=== PATIENT | female | born 1985 ===

== ENCOUNTER 2016-09-09 13:30 | Emergency (ER) | payer OTHER ==
[2016-09-09 13:30] VITALS: BMI 32.8
[2016-09-09 13:37] VITALS: BP 164/54; PULSE 74; RESP 20; TEMP 99.1; O2SAT 99
--- NOTE | 2016-09-09 14:07 | ED PDOC ---
HPI: Female Pain Time Seen by Provider: 09/09/16 14:02 Chief Complaint (Nursing): Female Genitourinary Chief Complaint (Provider): with vaginal bleeding History Per: Patient Additional Complaint(s): Patient is (1 ectopic and 5 spontaneous abortions) and she presents with abdominal pain and bleeding that started 1 hour ago. Patient states she is currently 11 weeks . Upon arrival she states the pain and bleeding have subsided. No fever or chills, no dysuria. Past Medical History Reviewed: Historical Data, Nursing Documentation, Vital Signs Vital Signs: Last Vital Signs Temp 99.1 F 09/09/16 13:34 Pulse 74 09/09/16 13:34 Resp 20 09/09/16 13:34 BP 164/54 H 09/09/16 13:34 Pulse Ox 99 09/09/16 13:34 - Medical History PMH: Asthma - Surgical History Other surgeries: right breast cyst removal, surgery for ectopic , cerclage insertion - Family History Family History: States: No Known Family Hx - Living Arrangements Living Arrangements: With Family - Social History Current smoker - smoking cessation education provided: No Alcohol: None Drugs: Denies - Home Medications Home Medications: Ambulatory Orders Medication Instructions Recorded Albuterol Sulfate [Proair 90 mcg IH PRN 05/23/16 Respiclick] Montelukast [Singulair] 10 mg PO DAILY 05/23/16 - Allergies Allergies/Adverse Reactions: Allergies Allergy/AdvReac Type Severity Reaction Status Date / Time shrimp Allergy RASH Verified 05/23/16 11:10 seafood Allergy RASH Uncoded 09/09/16 13:34 Review of Systems ROS Statement: Except As Marked, All Systems Reviewed And Found Negative Constitutional: Negative for: Fever Cardiovascular: Negative for: Chest Pain Respiratory: Negative for: Cough Gastrointestinal: Negative for: Nausea, Vomiting Genitourinary Female: Positive for: Vaginal Bleeding, Pelvic Pain. Negative for : Dysuria, Frequency, Incontinence, Hematuria, Vaginal Discharge Physical Exam - Reviewed Nursing Documentation Reviewed: Yes Vital Signs Reviewed: Yes - Physical Exam Appears: Positive for: Well, Non-toxic, No Acute Distress Skin: Negative for: Rash Eye Exam: Positive for: Normal appearance, EOMI, PERRL Cardiovascular/Chest: Positive for: Regular Rate, Rhythm Respiratory: Positive for: Normal Breath Sounds Gastrointestinal/Abdominal: Positive for: Normal Exam, Soft. Negative for: Tenderness Back: Negative for: L CVA Tenderness, R CVA Tenderness Neurologic/Psych: Positive for: Alert, Oriented - Laboratory Results Result Diagrams: 09/09/16 15:00 09/09/16 15:00 Urine dip results: Positive for: Blood (moderate). Negative for: Leukocyte Esterase, Nitrate, Ketones, Glucose, Bilirubin, Protein - ECG O2 Sat by Pulse Oximetry: 99 Pulse Ox Interpretation: Normal - Other Rad OB US X-Ray: Read By Radiologist X-Ray Interpretation: see below Medical Decision Making Medical Decision Makin-year-old with bleeding and pain Plan: US Labs US: Findings: The uterus is anteverted and measures 13.5 x 10.2 x 5.7 centimeter. Anechoic structure seen within the uterus measuring approximately 3.5 centimeters. This could represent a gestational sac versus a fluid-filled endometrium. This structure extends into the lower uterine segment. No yolk sac or pole identified. The cervix measures approximately 4 centimeters. The cervix appears closed. No definite cervical abnormality identified. The right ovary measures 7.7 x 2.4 x 2.3 centimeters. The left ovary measures approximately 4.1 x 2.4 x 3.8 centimeter. Normal flow seen within both ovaries. No significant free fluid in the cul-de-sac. Impression: No definite gestational sac, yolk sac or pole identified. Apparent fluid in the endometrial canal. Given patient's positive status, this could represent early , ectopic versus . Close interval repeat ultrasonography evaluation recommended. Follow-up with beta HCG levels recommended. Discussed with LEONIDAS Pang at approximately 4:45 p.m. on 09/09/2016. Beta is 662.55. Blood type O negative, rhogam ordered. Patient has had rhogam in the past and has had no previous adverse reaction. Patient is aware of above findings, all questions answered. She was instructed to have beta repeated in 2 days either by returning to ED or follow up with OB. Disposition - Clinical Impression Clinical Impression: Missed , Need for rhogam due to Rh negative mother - Patient ED Disposition Is Patient to be Admitted: No Counseled Patient/Family Regarding: Studies Performed, Diagnosis, Need For Followup - Disposition [facility] Disposition: Routine/Home Disposition Time: 17:35 Condition: STABLE Additional Instructions: Return to ED in 2 days for repeat beta quant or follow up with your OB in 2 days. Instructions: Spontaneous Miscarriage (ED) Results - Lab Results Lab Results: 09/09/16 15:00 WBC 13.2 H D RBC 4.78 Hgb 13.6 Hct 40.7 MCV 85.2 MCH 28.5 MCHC 33.4 RDW 14.2 Plt Count 307 MPV 7.6 Neut % (Auto) 69.0 Lymph % (Auto) 18.6 L Parmer % (Auto) 5.8 Eos % (Auto) 5.9 H Baso % (Auto) 0.7 Neut # 9.1 H Lymph # 2.5 Parmer # 0.8 Eos # 0.8 H Baso # 0.1 Sodium 141 Potassium 3.9 Chloride 102 Carbon Dioxide 25 Anion Gap 18 BUN 8 Creatinine 0.7 Est GFR ( Amer) > 60 Est GFR (Non-Af Amer) > 60 Random Glucose 89 Calcium 9.4 Total Bilirubin 0.5 AST 23 ALT 22 Alkaline Phosphatase 61 Total Protein 7.7 Albumin 4.2 Globulin 3.6 Albumin/Globulin Ratio 1.2 Beta HCG, Quant 662.55 Blood Type O NEGATIVE Antibody Screen Negative BBK History Checked Patient has bt
[2016-09-09 15:26] LABS: BASO # 0.1 K/uL (0.0-0.2); BASO % 0.7 % (0.0-2.0); EOS # 0.8 K/uL (0.0-0.7); EOS % 5.9 % (0.0-4.0); HEMATOCRIT 40.7 % (34.0-47.0); LYMPH # 2.5 K/uL (1.0-4.3); LYMPH % 18.6 % (20.0-40.0); MEAN CELL VOLUME 85.2 fl (81.0-99.0); MEAN CORPUSCULAR HEMOGLOBIN 28.5 pg (27.0-31.0); MEAN CORPUSCULAR HGB CONC 33.4 g/dL (33.0-37.0); MEAN PLATELET VOLUME 7.6 fl (7.2-11.7); MONO # 0.8 K/uL (0.0-0.8); MONO % 5.8 % (0.0-10.0); NEUT # 9.1 K/uL (1.8-7.0); NRBC % 0.1 % (0.0-0.0); RED CELL DISTRIBUTION WIDTH 14.2 % (11.5-14.5)
[2016-09-09 15:40] LABS: WHITE BLOOD COUNT 13.2 K/uL (4.8-10.8)
[2016-09-09 15:55] LABS: ALB/GLOB RATIO 1.2 (1.0-2.1); ALKALINE PHOSPHATASE 61 U/L (38-126); ALT/SGPT 22 U/L (9-52); AST/SGOT 23 U/L (14-36); BILIRUBIN,TOTAL 0.5 mg/dl (0.2-1.3); BLOOD UREA NITROGEN 8 mg/dl (7-17); CALCIUM 9.4 mg/dL (8.4-10.2); CARBON DIOXIDE 25 mmol/L (22-30); CHLORIDE 102 mmol/L (98-107); GFR AFRICAN-AMERICAN > 60; GLUCOSE,RANDOM 89 mg/dL (65-105); POTASSIUM 3.9 MMOL/L (3.6-5.0); SODIUM 141 mmol/l (132-148); TOTAL PROTEIN 7.7 G/DL (6.3-8.2)
--- NOTE | 2016-09-09 16:58 | US ---
Transabdominal ultrasound History: . BetahC. Patient has history of cervical cerclage. Patient also has history of multiple miscarriages. Comparison: Comparison is made to ultrasound from 06/12/2015. Technique: Transabdominal ultrasonography of the pelvis. Findings: The uterus is anteverted and measures 13.5 x 10.2 x 5.7 centimeter. Anechoic structure seen within the uterus measuring approximately 3.5 centimeters. This could represent a gestational sac versus a fluid-filled endometrium. This structure extends into the lower uterine segment. No yolk sac or pole identified. The cervix measures approximately 4 centimeters. The cervix appears closed. No definite cervical abnormality identified. The right ovary measures 7.7 x 2.4 x 2.3 centimeters. The left ovary measures approximately 4.1 x 2.4 x 3.8 centimeter. Normal flow seen within both ovaries. No significant free fluid in the cul-de-sac. Impression: No definite gestational sac, yolk sac or pole identified. Apparent fluid in the endometrial canal. Given patient's positive status, this could represent early , ectopic versus . Close interval repeat ultrasonography evaluation recommended. Follow-up with beta HCG levels recommended. Discussed with LEONIDAS Pang at approximately 4:45 p.m. on 09/09/2016.
== END 2016-09-09 19:23 | disposition home or self-care (01) ==
LOC: H.ER 13:30
DX: O02.1 Missed abortion (principal); Z29.13 Encounter for prophylactic Rho(D) immune globulin

== ENCOUNTER 2016-09-11 02:56 | Emergency (ER) | payer OTHER ==
[2016-09-11 02:56] VITALS: BMI 32.8
[2016-09-11 03:07] VITALS: BP 157/90; PULSE 68; RESP 16; TEMP 97.9; O2SAT 99
--- NOTE | 2016-09-11 03:47 | ED PDOC ---
HPI: Female Pain Time Seen by Provider: 09/11/16 03:09 Chief Complaint (Nursing): Female Genitourinary Chief Complaint (Provider): Pelvic pain History Per: Patient History/Exam Limitations: no limitations Onset/Duration Of Symptoms: Days Current Symptoms Are (Timing): Still Present Pain Scale Rating Of: 8 Quality Of Discomfort: Cramping Associated Symptoms: Constipation Additional Complaint(s): 30 y/o F with PMHx of asthma presents to ER c/o pelvic pain for the past 2 days. Patient was in ED on 09/09/16 because of abnormal vaginal bleeding. Patient was approximately 8 weeks . She states she has been followed by her PMD because of threatening miscarriage with previous US showing only a yolk sac. 2 days ago US coulnd't identify any specific parts and BHCG was 664 from previous 3000+ according to patient. She was instructed to return in 48 hours to repeat BHCG but came back earlier because of persistent, cramping abd pain. She states that after the episode of heavy bleeding 2 days ago, bleeding is less and she is only changing pads two times a day for the last 2 days, does not have bad smell and is dark brown. Denies fever, vomiting, nausea , headache, palpitations, dizziness. Patient states she did not take any pain meds at home because she does not have any. Abnormal Vaginal Bleeding: Yes : 6 Para: 0 Miscarriage: 5 (1 ectopic) Past Medical History Vital Signs: Last Vital Signs Temp 97.9 F 09/11/16 03:04 Pulse 68 09/11/16 03:04 Resp 16 09/11/16 03:04 BP 157/90 H 09/11/16 03:04 Pulse Ox 99 09/11/16 03:04 - Medical History PMH: Asthma - Surgical History Surgical History: Cholecystectomy, Tonsillectomy Other surgeries: Ectopic, cervical cerclage - Family History Family History: States: Unknown Family Hx - Living Arrangements Living Arrangements: With Family - Social History Current smoker - smoking cessation education provided: No Alcohol: None Drugs: Denies - Home Medications Home Medications: Ambulatory Orders Medication Instructions Recorded Albuterol Sulfate [Proair 90 mcg IH PRN 05/23/16 Respiclick] Montelukast [Singulair] 10 mg PO DAILY 05/23/16 Naproxen [Naprosyn] 500 mg PO BID PRN #14 tablet 09/11/16 oxyCODONE/Acetaminophen [Percocet 1 ea PO Q6 PRN #6 tab 09/11/16 5/325 mg Tab] - Allergies Allergies/Adverse Reactions: Allergies Allergy/AdvReac Type Severity Reaction Status Date / Time shrimp Allergy RASH Verified 05/23/16 11:10 seafood Allergy RASH Uncoded 09/09/16 13:34 Review of Systems Constitutional: Negative for: Fever, Weakness, Malaise Eyes: Negative for: Vision Change ENT: Negative for: Ear Pain Cardiovascular: Negative for: Chest Pain, Palpitations, Light Headedness Respiratory: Negative for: Cough, Shortness of Breath, Wheezing Gastrointestinal: Positive for: Constipation. Negative for: Nausea, Vomiting Genitourinary Female: Positive for: Vaginal Bleeding, Pelvic Pain. Negative for : Dysuria Musculoskeletal: Negative for: Back Pain Skin: Negative for: Rash Neurological: Negative for: Weakness, Confusion, Seizures, Headache Psych: Negative for: Anxiety, Depression Physical Exam - Reviewed Vital Signs Reviewed: Yes - Physical Exam Appears: Positive for: Well, Non-toxic, No Acute Distress Skin: Positive for: Normal Color, Warm Eye Exam: Positive for: Normal appearance, EOMI Neck: Positive for: Normal Cardiovascular/Chest: Positive for: Regular Rate, Rhythm. Negative for: Murmur Respiratory: Negative for: Respiratory Distress Gastrointestinal/Abdominal: Positive for: Tenderness (tenderness in pelvic and suprapubic area, no rebound or guarding) Back: Negative for: L CVA Tenderness, R CVA Tenderness Extremity: Negative for: Calf Tenderness Neurologic/Psych: Positive for: Alert, Oriented - ECG O2 Sat by Pulse Oximetry: 99 Medical Decision Making Medical Decision Making: A: 30 y/o F with PMHx of Asthma and SAB presents for evaluation of pelvic pain. 1-Spontaneous Miscarriage -Hx of SAB -US 2 days ago: No sac defined. -VB and pelvic pain for past 2 days -BHCG trending down. -Tylenol 650mg once Disposition - Clinical Impression Clinical Impression: Spontaneous - Disposition [facility]] Disposition Time: 07:00 Condition: STABLE Additional Instructions: Return to ER for any worse or new symptoms. Take medication for pain as directed. Pelvic rest for 10 days- no sex, no heavy exertion. Prescriptions: Naproxen [Naprosyn] 500 mg PO BID PRN #14 tablet PRN Reason: Pain, Moderate (4-7) oxyCODONE/Acetaminophen [Percocet 5/325 mg Tab] 1 ea PO Q6 PRN #6 tab PRN Reason: Pain, Severe (8-10) Instructions: Spontaneous Miscarriage (ED)
[2016-09-11] MEDS ORDERED: Oxycodone/Acetaminophen 5/325 mg Tab PO ONE (05:38)
--- NOTE | 2016-09-11 07:09 | ED PDOC ---
- ECG O2 Sat by Pulse Oximetry: 99 (RA) Pulse Ox Interpretation: Normal Medical Decision Making Medical Decision Makin Signed over to me by Samantha Snyder MD pending US. On my assessment patient still in pain. Patient then gradually improved, US report reviewed w patient and will discuss w her OB. States passed some clots and now feels better. No dizziness. Disposition Counseled Patient/Family Regarding: Studies Performed, Diagnosis, Need For Followup - Clinical Impression Clinical Impression: Spontaneous - POA Present On Arrival: None - Disposition [facility]errals[facility]] Disposition: Routine/Home Disposition Time: 11:00 Condition: STABLE Additional Instructions: Return to ER for any worse or new symptoms. Take medication for pain as directed. Pelvic rest for 10 days- no sex, no heavy exertion. Prescriptions: Naproxen [Naprosyn] 500 mg PO BID PRN #14 tablet PRN Reason: Pain, Moderate (4-7) oxyCODONE/Acetaminophen [Percocet 5/325 mg Tab] 1 ea PO Q6 PRN #6 tab PRN Reason: Pain, Severe (8-10) Instructions: Spontaneous Miscarriage (ED) Additional Comments - Additional Comments Additional Comments: Scribe Attestation: Documented by Primitivo Rodriguez, acting as a scribe for Jerry Jones DO. Provider Scribe Attestation: All medical record entries made by the Scribe were at my direction and personally dictated by me. I have reviewed the chart and agree that the record accurately reflects my personal performance of the history, physical exam, medical decision making, and the department course for this patient. I have also personally directed, reviewed, and agree with the discharge instructions and disposition.
[2016-09-11] MEDS ORDERED: Sodium Chloride 0.9% 1,000 ML IV STA (08:06)
--- NOTE | 2016-09-11 09:15 | US ---
HISTORY: lower abd pain vaginal bleeding COMPARISON: None available. TECHNIQUE: Transvaginal ultrasound examination of the pelvis was obtained. FINDINGS: UTERUS: Measures 13.2 part 8.1 x 6.7 cm. Normal in size and appearance. No fibroid or other mass lesion seen. ENDOMETRIUM: There is cystic structure seen in the endometrial cavity measures 6.3 x 2.7 x 4.2 centimeter. Findings may represent gestational sac. No evidence of yolk sac or or pole. CERVIX: No cervical abnormality identified. RIGHT OVARY: The right ovary was not clearly visualized. LEFT OVARY: The left ovary was not clearly visualized. FREE FLUID: No significant free fluid noted. OTHER FINDINGS: None. IMPRESSION: Latdkj-rk-gjnhoxgkny enlarged uterus. Cystic structure seen at the endometrial cavity may represent and empty gestational sac. No evidence of the yolk sac or pole. Limited assessment of the adnexa due to patient's severe pelvic pain and cramping in addition to heavy vaginal bleeding. The ovaries were not visualized in this study.
== END 2016-09-11 12:54 | disposition home or self-care (01) ==
LOC: H.ER 02:56
DX: O03.9 Complete or unspecified spontaneous abortion without complication (principal); J45.909 Unspecified asthma, uncomplicated

== ENCOUNTER 2016-09-16 19:31 | Inpatient (IN) | payer OTHER ==
[2016-09-16 19:31] VITALS: BMI 32.8
[2016-09-16] MEDS ORDERED: Lactated Ringer's 1,000 ML IV STA (19:44)
--- NOTE | 2016-09-16 20:13 | ED PDOC ---
HPI: Abdomen Chief Complaint (Provider): Abdominal pain, nausea/vomiting History Per: Patient, Family History/Exam Limitations: clinical condition Onset/Duration Of Symptoms: Hrs (Getting worse since today at 6 pm), Days Outside of [place] travel?: No Current Symptoms Are (Timing): Still Present Pain Scale Rating Of: 10 Location Of Pain/Discomfort: Other (Lower abdomen) Additional History Per: Patient <Ginny Puri - Last Filed: 09/17/16 06:19> <Poly Holley - Last Filed: 09/27/16 14:00> Time Seen by Provider: 09/16/16 19:39 Chief Complaint (Nursing): Abdominal Pain Additional Complaint(s): This is 30 y/o female with PMHx significant for Asthma, and multiple abortions who presents complaining of lower abdominal pain that started last Sunday when she came to ED with similar complain associated to vaginal bleeding, after labs and ultrasound. Ultrasound showed an enlarge uterus with suggestive empty gestational sac. Patient was sent home on oral pain medication. Patient states that since ED discharge the pain was controlled at home with medications, but this afternoon at 6 pm, has been getting worse and intractable, constant, cramping like pain, she took Percocet 2 hours ago with no relieved.Also she is complaining of nausea, and had three vomits in her way to the hospital, and vaginal spotting since last Sunday. Denies fever, chills, or urinary symptoms. Reports 2 soft stools this afternoon. PMHx: Asthma OBHx: (5 miscarriages, 1 ectopic s/p laparoscopic intervention), LMP: 06/14/16 SHx: Ectopic , Abdominal cerclage by , Cholecystectomy Allergies: Seafood/rash (Ginny Puri) Supervising Attending Note <Ginny Puri - Last Filed: 09/17/16 06:19> - Supervising Attending Note The Documented history was done by the: Physician Bender Helper, Attending Physician The documented physical exam was done by the: Physician Bender Helper, Attending Physician - Attestation: I have personally seen and examined this patient.: Yes I have fully participated in the care of the patient.: Yes I have reviewed all pertinent clinical information: Yes <Poly Holley - Last Filed: 09/27/16 14:00> - Notes: Notes:: Marked abdominal pain, h/o failed despite placement of transabdominal cervical cerclage. Currently with recurrent missed ab. DW Dr Scott OB who will hospitalize pt for D&C. (Poly Holley) Past Medical History - Medical History PMH: Asthma - Surgical History Surgical History: Cholecystectomy, Tonsillectomy Other surgeries: Ectopic , x 1 - Family History Family History: States: Unknown Family Hx - Social History Current smoker - smoking cessation education provided: No Alcohol: None Drugs: Denies <Ginny Puri - Last Filed: 09/17/16 06:19> <Poly Holley - Last Filed: 09/27/16 14:00> Vital Signs: Last Vital Signs Temp 98.8 F 09/17/16 05:25 Pulse 69 09/17/16 05:25 Resp 20 09/17/16 05:25 BP 121/79 09/17/16 05:25 Pulse Ox 100 09/17/16 06:20 - Home Medications Home Medications: Ambulatory Orders Medication Instructions Recorded Albuterol Sulfate [Proair 90 mcg IH PRN PRN 05/23/16 Respiclick] Montelukast [Singulair] 10 mg PO DAILY 05/23/16 - Allergies Allergies/Adverse Reactions: Allergies Allergy/AdvReac Type Severity Reaction Status Date / Time shrimp Allergy RASH Verified 09/16/16 19:33 seafood Allergy RASH Uncoded 09/09/16 13:34 - Laboratory Results Result Diagrams: 09/16/16 20:08 09/16/16 20:08 - ECG O2 Sat by Pulse Oximetry: 100 <Ginny Puri - Last Filed: 09/17/16 06:19> - Laboratory Results Result Diagrams: 09/16/16 20:08 09/16/16 20:08 <Poly Holley - Last Filed: 09/27/16 14:00> Medical Decision Making <Ginny Puri - Last Filed: 09/17/16 06:19> <Poly Holley - Last Filed: 09/27/16 14:00> Medical Decision Making: A: 30 y/o F with lower abdominal pain, vaginal spotting, nausea and vomiting. Plan: R/O ectopic vs ovarian torsion -CBC, CMP, PT/INR/PTT -Transvaginal ultrasound -Beta-HCG -Morphine IV once for pain management -Zofran IV once for nausea/vomiting management -IV hydration. -NPO for now Re-assessment Ultrasound showed continued fluid collection in the endometrial canal with a closed cervix, no yolk sac or pole identified. [employer]CT [employer] INSTRUCTOR/OB instructional services specialist consult appreciated. Dr. Scott on board Patient is going for D & C by Dr. Scott (Ginny Puri) Disposition - Patient ED Disposition Is Patient to be Admitted: Yes Discussed With : Poly Holley - Disposition Disposition: Transfer of Care Disposition Time: 23:00 <Ginny Puri - Last Filed: 09/17/16 06:19> <Poly Holley - Last Filed: 09/27/16 14:00> - Clinical Impression Clinical Impression: Missed - Disposition Condition: STABLE
[2016-09-16 20:16] LABS: BASO # 0.1 K/uL (0.0-0.2); BASO % 0.8 % (0.0-2.0); EOS # 0.7 K/uL (0.0-0.7); EOS % 6.2 % (0.0-4.0); HEMATOCRIT 40.6 % (34.0-47.0); LYMPH # 2.6 K/uL (1.0-4.3); LYMPH % 22.5 % (20.0-40.0); MEAN CELL VOLUME 86.2 fl (81.0-99.0); MEAN CORPUSCULAR HEMOGLOBIN 27.6 pg (27.0-31.0); MEAN PLATELET VOLUME 7.6 fl (7.2-11.7); MONO # 0.8 K/uL (0.0-0.8); MONO % 6.8 % (0.0-10.0); NEUT # 7.4 K/uL (1.8-7.0); NEUT % 63.7 % (50.0-75.0); WHITE BLOOD COUNT 11.7 K/uL (4.8-10.8)
[2016-09-16 20:26] LABS: BLOOD UREA NITROGEN 10 mg/dl (7-17); CARBON DIOXIDE 25 mmol/L (22-30); CHLORIDE 103 mmol/L (98-107); GFR AFRICAN-AMERICAN > 60; GLUCOSE,RANDOM 101 mg/dL (65-105); SODIUM 141 mmol/l (132-148)
[2016-09-16 20:27] LABS: ALB/GLOB RATIO 1.2 (1.0-2.1); ALKALINE PHOSPHATASE 70 U/L (38-126); ALT/SGPT 18 U/L (9-52); AST/SGOT 24 U/L (14-36); BILIRUBIN,TOTAL 0.4 mg/dl (0.2-1.3); CALCIUM 10.1 mg/dL (8.4-10.2); TOTAL PROTEIN 7.8 G/DL (6.3-8.2)
[2016-09-16 20:37] LABS: PARTIAL THROMBOPLASTIN TIME 27.3 SECONDS (23.3-32.5)
--- NOTE | 2016-09-16 22:14 | US ---
EXAM: US First Trimester, Transabdominal CLINICAL HISTORY: 30 years old, female; Pain; complicated by abdominal or pelvic pain; Lower; First trimester; Gestational age or lmp: 06/14/2016; Patient HX: Large empty sac still present; Additional info: Severe pain recent miscarriage R/O retained pocs hCG 140, beta-hCG 400 on 09/11/16 TECHNIQUE: Real-time transabdominal obstetrical ultrasound of the maternal pelvis and a first trimester with image documentation. COMPARISON: OB ultrasound 09/11/16 FINDINGS: Uterus: Uterus measures approximately 12.8 x 6.1 x 8.5 cm. Gestation: There is a large fluid collection/sac in the endometrium. This measures approximately 10.4 x 3 x 5.2 cm. Collection extends from the uterine fundus to the cervix. No pole or yolk sac is identified. Adnexa: Neither ovary could be identified IMPRESSION: Fluid collection in the endometrium unchanged since the prior study EXAM: US , Transvaginal CLINICAL HISTORY: 30 years old, female; Pain; complicated by abdominal or pelvic pain; Lower; First trimester; Gestational age or lmp: 06/14/2016; Patient HX: Large empty sac still present; Additional info: Severe pain recent miscarriage R/O retained pocs; hCG 140, beta-hCG 400 on 09/11/16 TECHNIQUE: Real-time transvaginal obstetrical ultrasound of the maternal pelvis and a first trimester with image documentation. Transvaginal imaging was used for better evaluation of the fetus and adnexa. EXAM DATE/TIME: 09/16/2016 7:45 PM COMPARISON: US - OB TRANSVAGINAL 09/11/2016 8:35:11 AM FINDINGS: Uterus: Cervix is closed. Cervix measures approximately 4 cm in length. There is a fluid collection in the endometrial canal measures at least 10 x 5 cm. Large size limits evaluation. No yolk sac or pole is identified in visualized portion of the sac. Adnexa: Neither ovary could be identified. IMPRESSION: Continued fluid collection in the endometrial canal with a closed cervix, no yolk sac or pole identified Similar findings are seen on the prior study
[2016-09-16 23:14] LABS: RBC URINE 281 /hpf (0-3); URINE BILIRUBIN NEGATIVE (NEGATIVE); URINE BLOOD LARGE (NEGATIVE); URINE COLOR YELLOW (YELLOW); URINE GLUCOSE (UA) NEG (Normal); URINE KETONE 20 mg/dL (NEGATIVE); URINE LEUKOCYTE ESTERASE TRACE Leu/uL (Negative); URINE PROTEIN 30 mg/dL (NEGATIVE); URINE UROBILINOGEN 0.2-1.0 mg/dL (0.2-1.0); WBC URINE 5 /hpf (0-5)
--- NOTE | 2016-09-16 23:24 | CP.PCM.HP ---
History of Present Illness - History of Present Illness History of Present Illness: 1-year-old [id number] missed based on ultrasound findings and decreasing hCG levels. History of multiple losses of .Patient had abdominal cerclage placedbefore prior Patient lost that at weeks.As per patient,abdominal cerclage is still in place.Patient has had 3 visits to the emergency room within the past week. Discussed with patient option of expectant management and D&C. Pt may have trouble passing gestational sac due to prior abd cerclage placement. Pt opting for D&C. Discussed with patient the R/B/A of D&C and patient consented for same. All patient questions answered. Present on Admission - Present on Admission Any Indicators Present on Admission: No History of DVT/PE: No History of Uncontrolled Diabetes: No Urinary Catheter: No Decubitus Ulcer Present: No Past Patient History - Past Medical History & Family History Past Medical History?: Yes - Past Social History Smoking Status: Never Smoked - CARDIAC Hx Cardiac Disorders: No - PULMONARY Hx Asthma: Yes - NEUROLOGICAL Hx Neurological Disorder: No - HEENT Hx HEENT Problems: No - RENAL Hx Chronic Kidney Disease: No - ENDOCRINE/METABOLIC Hx Endocrine Disorders: No - HEMATOLOGICAL/ONCOLOGICAL Hx Blood Disorders: No - INTEGUMENTARY Hx Dermatological Problems: No - MUSCULOSKELETAL/RHEUMATOLOGICAL Hx Musculoskeletal Disorders: No - GASTROINTESTINAL Hx Gastrointestinal Disorders: No - GENITOURINARY/GYNECOLOGICAL Hx Genitourinary Disorders: No - PSYCHIATRIC Hx Emotional Abuse: No Hx Physical Abuse: No - SURGICAL HISTORY Hx Cholecystectomy: Yes Hx Tonsillectomy: Yes - ANESTHESIA Hx Anesthesia: Yes Hx Anesthesia Reactions: No Hx Malignant Hyperthermia: No Meds Allergies/Adverse Reactions: Allergies Allergy/AdvReac Type Severity Reaction Status Date / Time shrimp Allergy RASH Verified 09/16/16 19:33 seafood Allergy RASH Uncoded 09/09/16 13:34 Physical Exam - Constitutional Appears: Well, Non-toxic - Head Exam Head Exam: ATRAUMATIC - Eye Exam Eye Exam: Normal appearance Pupil Exam: NORMAL ACCOMODATION, PERRL - ENT Exam ENT Exam: Mucous Membranes Moist - Respiratory Exam Respiratory Exam: Clear to Auscultation Bilateral, NORMAL BREATHING PATTERN - Cardiovascular Exam Cardiovascular Exam: REGULAR RHYTHM - GI/Abdominal Exam GI & Abdominal Exam: Normal Bowel Sounds, Soft Results - Vital Signs Recent Vital Signs: Last Vital Signs Temp 97.4 F L 09/16/16 19:33 Pulse 113 H 09/16/16 20:37 Resp 16 09/16/16 19:33 BP 166/75 H 09/16/16 20:37 Pulse Ox 100 09/16/16 22:27 - Labs Result Diagrams: 09/16/16 20:08 09/16/16 20:08 - Imaging and Cardiology US - abdomen Status: Image reviewed by me, Report reviewed by me Assessment & Plan - Assessment and Plan (Free Text) Assessment: Missed Plan: Suction D&C - Date & Time Date: 09/16/16 Time: 23:26
[2016-09-17] MEDS ORDERED: Propofol 10 mg/ml Inj (20 ML) ONE (00:08)
[2016-09-17] MEDS ORDERED: Midazolam 2 MG/2 ML VIAL ONE (00:09)
[2016-09-17] MEDS ORDERED: Lactated Ringer's 1,000 ML IV ONE (00:35)
[2016-09-17] MEDS ORDERED: Succinylcholine 200 mg/10 ml Inj IV ONE (00:37)
[2016-09-17] MEDS ORDERED: HYDROmorphone 0.5 mg/0.5 ml ISec IVP PRN (01:13)
--- NOTE | 2016-09-17 01:21 | PCM.SURG1 ---
Surgeon's Initial Post Op Note - Surgeon's Notes Surgeon: Sonia Histology Technician: N/A Type of Anesthesia: General Endo Anesthesia Administered By: Blaine Pre-Operative Diagnosis: Missed Ab Operative Findings: +POC in uterus. Normal pelvic anatomy Post-Operative Diagnosis: Same Operation Performed: Suction D&C Specimen/Specimens Removed: POC Estimated Blood Loss: EBL {In ML}: 200 Blood Products Given: N/A Post-Op Condition: Good Date of Surgery/Procedure: 09/17/16 Time of Surgery/Procedure: 01:21
[2016-09-17] MEDS ORDERED: Oxycodone/Acetaminophen 5/325 mg Tab PO PRN (01:23)
--- NOTE | 2016-09-17 01:26 | CP.PCM.DIS ---
Provider - Provider Date of Admission: 09/16/16 22:55 Attending physician: Pilo Scott MD Primary care physician: robbie Time Spent in preparation of Discharge (in minutes): 10 Diagnosis - Discharge Diagnosis (1) Missed Status: Acute Hospital Course - Lab Results Lab Results: Most Recent Lab Values WBC 11.7 K/uL (4.8-10.8) H 09/16/16 20:08 RBC 4.71 Mil/uL (3.80-5.20) 09/16/16 20:08 Hgb 13.0 g/dL (12.0-16.0) 09/16/16 20:08 Hct 40.6 % (34.0-47.0) 09/16/16 20:08 MCV 86.2 fl (81.0-99.0) 09/16/16 20:08 MCH 27.6 pg (27.0-31.0) 09/16/16 20:08 MCHC 32.0 g/dL (33.0-37.0) L 09/16/16 20:08 RDW 14.0 % (11.5-14.5) 09/16/16 20:08 Plt Count 304 K/uL (130-400) 09/16/16 20:08 MPV 7.6 fl (7.2-11.7) 09/16/16 20:08 Neut % (Auto) 63.7 % (50.0-75.0) 09/16/16 20:08 Lymph % (Auto) 22.5 % (20.0-40.0) 09/16/16 20:08 [place] % (Auto) 6.8 % (0.0-10.0) 09/16/16 20:08 Eos % (Auto) 6.2 % (0.0-4.0) H 09/16/16 20:08 Baso % (Auto) 0.8 % (0.0-2.0) 09/16/16 20:08 Neut # 7.4 K/uL (1.8-7.0) H 09/16/16 20:08 Lymph # 2.6 K/uL (1.0-4.3) 09/16/16 20:08 [place] # 0.8 K/uL (0.0-0.8) 09/16/16 20:08 Eos # 0.7 K/uL (0.0-0.7) 09/16/16 20:08 Baso # 0.1 K/uL (0.0-0.2) 09/16/16 20:08 PT 10.4 SECONDS (9.6-11.2) 09/16/16 20:08 INR 1.00 (0.92-1.08) 09/16/16 20:08 APTT 27.3 SECONDS (23.3-32.5) 09/16/16 20:08 Sodium 141 mmol/l (132-148) 09/16/16 20:08 Potassium 4.0 MMOL/L (3.6-5.0) 09/16/16 20:08 Chloride 103 mmol/L (98-107) 09/16/16 20:08 Carbon Dioxide 25 mmol/L (22-30) 09/16/16 20:08 Anion Gap 17 (10-20) 09/16/16 20:08 BUN 10 mg/dl (7-17) 09/16/16 20:08 Creatinine 0.7 mg/dL (0.7-1.2) 09/16/16 20:08 Est GFR ( Amer) > 60 09/16/16 20:08 Est GFR (Non-Af Amer) > 60 09/16/16 20:08 Random Glucose 101 mg/dL (65-105) 09/16/16 20:08 Calcium 10.1 mg/dL (8.4-10.2) 09/16/16 20:08 Total Bilirubin 0.4 mg/dl (0.2-1.3) 09/16/16 20:08 AST 24 U/L (14-36) 09/16/16 20:08 ALT 18 U/L (9-52) 09/16/16 20:08 Alkaline Phosphatase 70 U/L (38-126) 09/16/16 20:08 Total Protein 7.8 G/DL (6.3-8.2) 09/16/16 20:08 Albumin 4.2 g/dL (3.5-5.0) 09/16/16 20:08 Globulin 3.6 gm/dL (2.2-3.9) 09/16/16 20:08 Albumin/Globulin Ratio 1.2 (1.0-2.1) 09/16/16 20:08 Beta HCG, Quant 148.56 mIU/mL 09/16/16 20:08 Urine Color Yellow (YELLOW) 09/16/16 22:46 Urine Clarity Slighty-cloudy (Clear) 09/16/16 22:46 Urine pH 5.0 (5.0-8.0) 09/16/16 22:46 Ur Specific [place] 1.018 (1.003-1.030) 09/16/16 22:46 Urine Protein 30 mg/dL (NEGATIVE) 09/16/16 22:46 Urine Glucose (UA) Neg mg/dL (Normal) 09/16/16 22:46 Urine Ketones 20 mg/dL (NEGATIVE) 09/16/16 22:46 Urine Blood Large (NEGATIVE) 09/16/16 22:46 Urine Nitrate Negative (NEGATIVE) 09/16/16 22:46 Urine Bilirubin Negative (NEGATIVE) 09/16/16 22:46 Urine Urobilinogen 0.2-1.0 mg/dL (0.2-1.0) 09/16/16 22:46 Ur Leukocyte Esterase Trace Opal/uL (Negative) 09/16/16 22:46 Urine RBC (Auto) 281 /hpf (0-3) H 09/16/16 22:46 Urine Microscopic WBC 5 /hpf (0-5) 09/16/16 22:46 Ur Squamous Epith Cells 2 /hpf (0-5) 09/16/16 22:46 - Date & Time of H&P Date of H&P: 09/16/16 Time of H&P: 22:30 Discharge Exam - Head Exam Head Exam: ATRAUMATIC Discharge Plan - Follow Up Plan Condition: STABLE Disposition: HOME/ ROUTINE
[2016-09-17 02:36] VITALS: RESP 20
[2016-09-17 06:15] VITALS: BP 121/79; PULSE 69; TEMP 98.8; O2SAT 100
--- NOTE | 2016-09-17 08:51 | OP ---
PROCEDURE DATE: 09/17/2016 PREOPERATIVE DIAGNOSIS: Missed at approximately 6 weeks' gestational age. POSTOPERATIVE DIAGNOSIS: Missed at approximately 6 weeks' gestational age. OPERATION PERFORMED: Suction D and C. OPERATIVE FINDINGS: Products of conception within the uterus, normal-appearing pelvic anatomy. ESTIMATED BLOOD LOSS: 200 mL. FLUIDS: 500 mL lactated ringers. URINE OUTPUT: 10 mL of clear urine. SURGEON: Pilo Scott MD. ANESTHESIOLOGIST: Blaine. ANESTHESIA: General. COMPLICATIONS: None. PROCEDURE: The patient was taken to the operating room where general anesthesia was found to be adeq uate. The patient was prepped and draped in normal sterile fashion in the dorsal lithotomy position. A weighted speculum was placed at the posterior aspect of the vagina. A Cheema retractor was placed at the anterior surface of the vagina. The cervix was grasped with a single-tooth tenaculum at the a nterior surface of the cervix. The cervix was dilated with [place] dilators to a size 20-Serbian. Suct ion device was placed through the cervix into the uterine cavity. Suction device was activated. Pro ducts of conception were seen and removed from the uterus. The suction device was removed from the u terus. The uterine lining was curetted with a sharp curette until a gritty texture noted. The sucti on device was replaced back into the uterine cavity and activated. Remaining products of conception were seen and removed from the uterus. The suction device was deactivated and removed from the uteru s. The tenaculum was removed from the cervix. Both the cervical os and tenaculum site were found to be hemostatic. All instruments were removed from the patient. The patient tolerated the procedure well. All sponge, lap, and needle counts were correct x 2. Ther e were no complications. The patient was taken to the recovery room awake and in stable condition. Pilo Scott MD cc: [id number] TT: 09/17/2016 08:50:18 jn
== END 2016-09-17 07:15 | disposition home or self-care (01) | DRG 381 ==
LOC: H.ER 19:31 → H.ERHOLD 22:55 → H.MEDSURG1 09-17 02:29
PROVIDERS: ADMIT Obstetrics & Gynecology; ATTEND Obstetrics & Gynecology
PROC: 10D17ZZ Extraction of Products of Conception, Retained, Via Natural or Artificial Opening (ICD-10-PCS; principal; 2016-09-17 00:30)
DX: O02.1 Missed abortion (principal); J45.909 Unspecified asthma, uncomplicated; Z3A.01 Less than 8 weeks gestation of pregnancy